=== PATIENT | male | born 1950 | race Caucasian/White ===

== ENCOUNTER 2022-03-17 01:17 | Observation (INO) ==
[2022-03-17] MEDS ORDERED: Naloxone 0.4 MG/ML INJ IVP PRN (07:26)
[2022-03-17] MEDS ORDERED: Ondansetron 4 MG/2 ML VIAL IVP PRN (07:26)
[2022-03-17] MEDS ORDERED: Acetaminophen 325 MG TABLET PO PRN (07:43)
[2022-03-17] MEDS ORDERED: Perflutren Lipid Microsphere 1.3 ML in 0.9 % Sodium Chloride 8.7 ML IVP PRN (08:00)
[2022-03-17 09:08] LABS: BUN/Creatinine Ratio 15 (6-26); Blood Urea Nitrogen 17 mg/dL (8-23); Calcium 7.3 mg/dL (8.6-10.3); Carbon Dioxide 18 mEq/L (23-29); Chloride 97 mEq/L (98-107); Glucose 107 mg/dL (70-105); Magnesium 1.5 mg/dL (1.6-2.6); Osmolality,Calculated 272 (280-300); Phosphorous 3.7 mg/dL (2.7-4.5); Potassium 3.1 mEq/L (3.5-5.1); Sodium 130 mEq/L (136-145); eGFR For African Americans > 60 (> 60); eGFR For Non-African Americans > 60 (> 60)
[2022-03-17 09:21] LABS: Thyroid Stimulating Hormone 2.848 mcIU/mL (0.340-5.600)
[2022-03-17] MEDS ORDERED: 0.9 % Sodium Chloride 1,000 ML IVC SCH (09:30)
[2022-03-17 09:33] LABS: Folate > 22.3 ng/mL (3.0-16.0); Vitamin B12 360 pg/mL (250-1100)
[2022-03-18 08:54] LABS: Basophils # 0.1 K/mcL (0.0-0.2); Basophils % 0.5 %; Eosinophils % 0.3 %; Hematocrit 37.3 % (37.5-50.1); Hemoglobin 12.3 g/dL (12.9-16.9); Immature Granulocytes % 0.5 % (0-4); Lymphocytes # 1.6 K/mcL (0.6-4.6); Lymphocytes % 15.1 %; Mean Corpuscular Hemoglobin 30.9 pg (28.0-33.3); Mean Corpuscular Volume 93.7 fL (83.0-100.0); Mean Platelet Volume 9.6 fL (9.4-12.4); Monocytes # 0.8 K/mcL (0.0-1.3); Monocytes % 7.5 %; Neutrophils # 8.2 K/mcL (1.6-8.9); Platelet Count 251 K/mcL (140-400); Red Blood Count 3.98 M/mcL (4.19-5.50); Red Cell Distribution Width 16.3 % (11.5-14.5); Segmented Neutrophils % 76.1 %; White Blood Count 10.8 K/mcL (4.3-11.1)
[2022-03-18] MEDS ORDERED: Loratadine 10 MG TABLET PO SCH (09:00)
[2022-03-18 09:07] LABS: BUN/Creatinine Ratio 14 (6-26); Blood Urea Nitrogen 10 mg/dL (8-23); Calcium 7.4 mg/dL (8.6-10.3); Carbon Dioxide 19 mEq/L (23-29); Chloride 98 mEq/L (98-107); Glucose 134 mg/dL (70-105); Magnesium 1.8 mg/dL (1.6-2.6); Osmolality,Calculated 269 (280-300); Potassium 3.3 mEq/L (3.5-5.1); Sodium 129 mEq/L (136-145); eGFR For African Americans > 60 (> 60); eGFR For Non-African Americans > 60 (> 60)
[2022-03-18 11:22] VITALS: BP 130/78; PULSE 71; TEMP 97.4; O2SAT 96
== END 2022-03-18 13:19 | disposition home or self-care (01) ==
LOC: 2NENU → SUATTDRO 07:22
PROVIDERS: ADMIT Internal Medicine; ATTEND Family Medicine